=== PATIENT | male | born 1965 | race Caucasian/White ===

== ENCOUNTER 2019-10-08 06:23 | Emergency (ER) | payer BC, OTHER ==
[2019-10-08] MEDS ORDERED: Cocaine 4% TOPICAL* 4 ML/BOTTLE TOPICAL ONE (06:27)
--- NOTE | 2019-10-08 06:37 | ED ---
Throat Pain/Nasal Congestion - HPI Summary HPI Summary: Patient is a 54 y/o M presenting to the ED via EMS for a chief complaint of epistaxis from both nares. Per EMS, patient was found to have 300-400 cc of bright red blood from the nose. Patient notes the bleeding began around 04:30 on 10/08/19. He recently had a nasal surgery performed [address] Nico Villagran at [facility]. He denies fever, headache, or cough. PMHx is significant for DM and blood clots. PSHx is significant for kidney transplant in 2007 performed due to IgA nephropathy. Patient takes Warfarin. - History of Current Complaint Time Seen by Provider: 10/08/19 06:25 Hx Obtained From: Patient Onset/Duration: Sudden Onset, Still Present Severity: Moderate Associated Signs And Symptoms: Positive: Negative Cough: None - Allergies/Home Medications Allergies/Adverse Reactions: Allergies Allergy/AdvReac Type Severity Reaction Status Date / Time No Known Allergies Allergy Verified 02/09/19 10:44 Home Medications: Home Medications Epleronone (NF) [Inspra (NF)] 50 mg PO DAILY 10/08/19 [History Confirmed ] Insulin Glargine,Hum.rec.anlog [Lantus Solostar 5x3 ML PENS] 20 units SUBCUT DAILY 10/08/19 [History Confirmed 10/08/19] PMH/Surg Hx/FS Hx/Imm Hx Previously Healthy: Yes Endocrine/Hematology History: Reports: Hx Diabetes - due to prednisone Cardiovascular History: Reports: Hx Angina, Hx Hypercholesterolemia, Hx Hypertension History: Reports: Other Problems/Disorders - kidney transplant 2007 Musculoskeletal History: Denies: Hx Rheumatoid Arthritis, Hx Osteoporosis Sensory History: Denies: Hx Legally Blind, Hx Deafness Opthamlomology History: Denies: Hx Legally Blind EENT History: Denies: Hx Deafness - Surgical History Surgical History: Yes Surgery Procedure, Year, and Place: kidney transplant 2007 Infectious Disease History: No - Family History Known Family History: Negative: Diabetes - Social History Occupation: Employed Full-time Lives: Alone Alcohol Use: Occasionally Hx Substance Use: No Substance Use Type: Reports: None Hx Tobacco Use: No Smoking Status (MU): Never Smoked Tobacco Review of Systems Negative: Fever Positive: Epistaxis - Both nares Negative: Cough Negative: Headache All Other Systems Reviewed And Are Negative: Yes Physical Exam - Summary Physical Exam Summary: Appearance: Well-appearing, Well-nourished, lying in bed comfortable. Active bleeding out of both nares, difficult to laterate actual site of bleeding. Skin: Warm, dry, no obvious rash Eyes: sclera anicteric, no conjunctival pallor ENT: mucous membranes moist Neck: deferred Respiratory: No signs of respiratory distress Cardiovascular: Appears well perfused, pulses are nml Abdomen: deferred Musculoskeletal: Moving all 4 extremities without obvious discomfort Neurological: Awake and alert, mentation is normal, speech is fluent and appropriate Psychiatric: affect is normal, does not appear anxious or depressed Triage Information Reviewed: Yes Vital Signs Reviewed: Yes Procedures - Sedation Patient Received Moderate/Deep Sedation with Procedure: No Diagnostics - Laboratory Result Diagrams: 10/08/19 07:28 10/08/19 07:28 Lab Statement: Any lab studies that have been ordered have been reviewed, and results considered in the medical decision making process. Re-Evaluation - Re-Evaluation First Eval Re-Evaluation Time: 07:20 Change: Improved Comment: Patient states he thinks the bleeding has stopped after I placed the 7.5cm bilateral Rhino rockets. Discussed Kiarra Quiroga MANAGER INSURANCE's (patient's ENT MANAGER INSURANCE at [facility]) consult with patient. Patient agrees to be transferred to [facility] ED (where his ENT, Dr. Villagran, is in the OR today) if necessary since we do not have ENT search engine optimization manager today. Second Eval Re-Evaluation Time: 08:06 Comment: Patients is at bedside, and they report they will be able to follow-up with Dr. Villagran tomorrow. I will give the patient water to swish and swallow and then I will check his throat to confirm that the bleeding has stopped. If so, I will discharge the patient to be driven home by his for follow-up with his ENT tomorrow. Third Eval Re-Evaluation Time: 09:33 Comment: Discussed plan with patient. Patient will be discharged to follow-up with Dr. Villagran tomorrow. Strict precautions given about increased risk of syncope. Patient agrees and understands with this plan. EENT Course/Dx - Course Course Of Treatment: Patient is a 54 y/o M presenting to the ED via EMS for a chief complaint of epistaxis from both nares. Per EMS, patient was found to have 300-400 cc of bright red blood from the nose. Patient notes the bleeding began around 04:30 on 10/08/19. He recently had a nasal surgery performed [address] Nico Villagran at [facility]. He denies fever, headache, or cough. PMHx is significant for DM and blood clots. PSHx is significant for kidney transplant in 2007 performed due to IgA nephropathy. Patient takes Warfarin. On exam, active bleeding out of both nares, difficult to laterate actual site of bleeding. In the ED course, patient was given cocaine 1ml TOPICAL and lidocaine 15 ml PO. Patient is a sign-out at 07:00 on 10/08/[address] Colten Evangelista MD to Dr. Julián Ybarra MD at shift change, pending further workup and disposition. - Diagnoses Provider Diagnoses: Epistaxis Discharge ED - Sign-Out/Discharge Documenting (check all that apply): Sign-Out Patient Signing out patient TO: Julián Ybarra - Patient is a sign-out at 07:00 on 03/[address] Colten Evangelista MD to Dr. Julián Ybarra MD at shift change, pending further workup and disposition. - Discharge Plan Condition: Stable Disposition: HOME Prescriptions: Amoxicillin/Clavulanate TAB* [Augmentin TAB 875*] 875 mg PO BID #14 tab Patient Education Materials: Amoxicillin/Clavulanate Potassium (By mouth), Nosebleed (ED) Referrals: Karan Gonzales MD [Primary Care Provider] - 3 Days Additional Instructions: Please follow up with Dr. Villagran tomorrow at 10:00AM. I have given you Augmentin and am keeping the Rhino rockets in place. Please do not drive as you have an increased risk of syncope. Please go to the [facility] ED if you have bleeding again or any other concerning symptoms. Call Dr. Villagran's hotline if you end up in the ED today and he will see you in the [facility] ED. It was a pleasure taking care of you today. - Billing Disposition and Condition Condition: STABLE Disposition: Home - Attestation Statements Document Initiated by Scribe: Yes Documenting Scribe: Riya Maravilla Provider For Whom Scribe is Documenting (Include Credential): Colten Evangelista MD Scribe Attestation: I, Riya Maravilla, scribed for Colten Evangelista MD on 10/11/19 at 1914. Scribe Documentation Reviewed: Yes Provider Attestation: The documentation as recorded by the macibRiya guevara accurately reflects the service I personally performed and the decisions made by me, Colten Evangelista MD Status of Scrrosaline Document: Viewed
[2019-10-08] MEDS ORDERED: Lidocaine 2% VISCOUS* 15 ML UDC PO ONE (07:01)
--- NOTE | 2019-10-08 07:07 | ED ---
Progress - Progress Note Progress Note: Patient is a 54 y/o M with recent septum surgery a week ago presenting to the ED via EMS for a chief complaint of epistaxis from both nares. Patient is a sign -out at 07:00 on 10/08/[address] Colten Evangelista MD to Dr. Julián Ybarra MD at shift change, pending further workup and disposition. At 0700 I re-evaluated the patient. Patient reports feeling dizziness initially , but no longer. He reports waiting one week after his surgery to restart the Coumadin. I replaced the blood-soaked bilateral Rhino rocket 5.5cm anterior packings with 7.5cm Rhino rockets soaked with viscous lidocaine packings as the patient was still bleeding with the 5.5.cm packings. Patient tolerated well. Re-Evaluation - Re-Evaluation First Eval Re-Evaluation Time: 07:20 Change: Improved Comment: Patient states he thinks the bleeding has stopped after I placed the 7.5cm bilateral Rhino rockets. Discussed Kiarra Quiroga SUPPLY CHAIN SYSTEMS MANAGER's (patient's ENT SUPPLY CHAIN SYSTEMS MANAGER at [facility]) consult with patient. Patient agrees to be transferred to [place] ED (where his ENT, Dr. Villagran, is in the OR today) if necessary since we do not have ENT train control technician today. Second Eval Re-Evaluation Time: 08:06 Comment: Patients is at bedside, and they report they will be able to follow-up with Dr. Villagran tomorrow. I will give the patient water to swish and swallow and then I will check his throat to confirm that the bleeding has stopped. If so, I will discharge the patient to be driven home by his for follow-up with his ENT tomorrow. Third Eval Re-Evaluation Time: 09:33 Comment: Discussed plan with patient. Patient will be discharged to follow-up with Dr. Villagran tomorrow. Strict precautions given about increased risk of syncope. Patient agrees and understands with this plan. Course/Dx - Course Course Of Treatment: Patient is a 54 y/o M with recent nasal surgery presenting to the ED via EMS for a chief complaint of epistaxis from both nares. Patient is a sign-out at 07:00 on 10/08/[address] Colten Evangelista MD to Dr. Julián Ybarra MD at shift change, pending further workup and disposition. At 0700, I replaced the blood-soaked bilateral Rhino rocket 5.5cm anterior packings with 7.5cm Rhino rockets soaked with viscous lidocaine packings as the patient was still bleeding with the 5.5.cm packings. Patient tolerated well. At 0714, discussed patient case with Kiarra Quiroga NP, the patient's ENT SUPPLY CHAIN SYSTEMS MANAGER at [facility], who stated that Dr. Villagran, the patient's ENT, is available at [facility] today, but does not have privileges to come and see the patient here. At 0726, discussed patient case with [place]. Abdi, [place] at [facility] who stated that if the patient is not actively bleeding, he would not do anything right now. He states that the patient can be discharged home with bilateral Rhino rockets in place. My concern with discharging the patient with bilateral anterior and posterior rockets is that the increase in vagal tone with that much pressure on the septum could cause syncope. I do not feel the patient is stable for discharged to drive himself. Additionally, leaving the rockets in for more than 24-36 hours increases the risk of toxic shock syndrome and septum necrosis. I will discuss Dr. Stock consult with the patient. I think if the patient can arrange a ride and have somebody take him to see Dr. Villagran (his own ENT) today, I would feel comfortable discharging the patient. Will discuss with patient. At 0802 Patients is at bedside, and they report they will be able to follow-up with Dr. Villagran tomorrow. I will give the patient water to swish and swallow and then I will check his throat to confirm that the bleeding has stopped. If so, I will discharge the patient to be driven home by his for follow-up with his ENT tomorrow. I gave the patient Augmentin. Blood work revealed RBC 3.59, Hgb 11.2, Hct 32, MPV 7.2, INR 2.87, chloride 112, BUN 30, creatinine 1.70, glucose 251, calcium 7.8. At [address] Villagran, who said he can see the patient tomorrow at 1000. He agrees with bilateral rockets, Augmentin, and follow-up tomorrow. Discussed plan with patient. Patient will be discharged to follow-up with Dr. Villagran tomorrow. Strict precautions given about increased risk of syncope. Patient agrees and understands with this plan. - Diagnoses Provider Diagnoses: Epistaxis - Provider Notifications Discussed Care Of Patient With: Kiarra Quiroga Time Discussed With Above Provider: 07:14 Instructed by Provider To: Other - Discussed patient case with Kiarra Qiuroga NP, the patient's ENT SUPPLY CHAIN SYSTEMS MANAGER at [facility], who stated that Dr. Villagran, the patient's ENT, is available at [place] today, but does not have privileges to come and see the patient here. At 07, discussed patient case with Dr. Abdi, ENT at [facility], who stated that if the patient is not actively bleeding, he would not do anything right now. He states that the patient can be discharged home with bilateral Rhino rockets in place. At [address] Villagran , who said he can see the patient tomorrow at 1000. He agrees with bilateral rockets, Augmentin, and follow-up tomorrow. Discharge ED - Sign-Out/Discharge Documenting (check all that apply): Patient Departure - Discharge, Receiving Sign-Out Receiving patient FROM: Colten Evangelista - Discharge Plan Condition: Stable Disposition: HOME Prescriptions: Amoxicillin/Clavulanate TAB* [Augmentin TAB 875*] 875 mg PO BID #14 tab Patient Education Materials: Amoxicillin/Clavulanate Potassium (By mouth), Nosebleed (ED) Referrals: Karan Gonzales MD [Primary Care Provider] - 3 Days Additional Instructions: Please follow up with Dr. Villagran tomorrow at 10:00AM. I have given you Augmentin and am keeping the Rhino rockets in place. Please do not drive as you have an increased risk of syncope. Please go to the [place] ED if you have bleeding again or any other concerning symptoms. Call Dr. Villagran's hotline if you end up in the ED today and he will see you in the [place] ED. It was a pleasure taking care of you today. - Billing Disposition and Condition Condition: STABLE Disposition: Home - Attestation Statements Document Initiated by Scribe: Yes Documenting Scribe: Norman Chase Provider For Whom Dylon is Documenting (Include Credential): Julián Ybarra MD Scribe Attestation: I, Norman Chase, scribed for Julián Ybarra MD on 10/08/19 at 1900. Scribe Documentation Reviewed: Yes Provider Attestation: The documentation as recorded by the scribe, Norman Chase accurately reflects the service I personally performed and the decisions made by me, Julián Ybarra MD Status of Scribe Document: Viewed Procedures - Procedure Summary Procedure Summary: Rhino rocket placement: I replaced the blood-soaked bilateral Rhino rocket 5.5cm anterior packings with 7.5cm Rhino rockets soaked with viscous lidocaine packings as the patient was still bleeding with the 5.5.cm packings. Consent obtained. Patient tolerated well. - Sedation Patient Received Moderate/Deep Sedation with Procedure: No
--- OUTSIDE RECORDS SUMMARY | 2019-10-08 07:39 | XMS REPORT | Continuity of Care Document ---
:1965 External Reference #:[id number] Author Name Kiarra Quiroga NP (transmitted by agent of provider Meena Esparza) Address [address] [place] [address] Care Team Providers Name Role Phone Karan Gonzales MD - Family Medicine Care Team Information Records Section Supervisor Unavailable Problems Description No Information Available Social History Type Date Description Comments Sex Unknown Smokeless Tobacco Current Smokeless Tobacco User ETOH Use Current Alcohol Use - 1-3 Days A Week. Recreational Drug Use Never Used Drugs Allergies, Adverse Reactions, Alerts Description No Known Drug Allergies Medications Active Medications SIG Qnty Indications Ordering Provider Date Percocet 1-2 by mouth 20tabs Nico Villagran, 09/10/2019 5-325mg Tablets four times a M.D. day as needed for pain Warfarin Sodium 1 po one day Unknown 5mg Tablets 7.5 po the next Alendronate Sodium take 1 tablet Unknown 70mg by mouth weekly Tablets Aspirin 1 by mouth Unknown 81mg Tablets DR every day Eplerenone Unknown 50mg Tablets Vitamin D3 Ultra Unknown Potency [id number] Tablets Glipizide Unknown 10mg Tablets Lantus Solostar Unknown 100Unit/ML Solution Pen-Inject Mycophenolate Mofetil Unknown 250mg Capsules Prednisone 1 by mouth Unknown 5mg Tablets every day Ranitidine HCL 1 by mouth Unknown 150mg every day Tablets Immunizations Description No Information Available Vital Signs Date Vital Result Comment 09/17/2019 3:10pm Weight 176.00 lb Height 67 inches 5'7" BMI (Body Mass Index) 27.6 kg/m2 BP Systolic 139 mmHg BP Diastolic 88 mmHg Heart Rate 81 /min O2 % BldC Oximetry 95 % Body Temperature 98.8 F Pain Level 0 07/23/2019 9:04am Weight 176.00 lb Height 67 inches 5'7" BMI (Body Mass Index) 27.6 kg/m2 BP Systolic 143 mmHg BP Diastolic 91 mmHg Heart Rate 61 /min O2 % BldC Oximetry 99 % Body Temperature 97.8 F Pain Level 8 Results Description No Information Available Procedures Date Code Description Status 09/10/2019 15705 Nasal/Sinus Endoscopy W/Ligation Sphenopalatine Artery Completed 09/10/2019 72307 Septoplasty Completed 09/10/2019 05509 Exc.Turbinate/Partial Or Complete Completed 09/10/2019 43668 Anesthesia, Nose & Accessory Sinus Surgery Not Otherwise Completed Spec 07/23/2019 25012 Nasal/Sinus Endoscopy, Surgical, W/Control Of Epistaxis Completed 07/22/2019 95466 Nasal/Sinus Endoscopy, Surgical, W/Control Of Epistaxis Completed Medical Devices Description No Information Available Encounters Type Date Location Provider Dx Diagnosis Office Visit 07/22/2019 11:00a Main Office Nico Villagran M.D. R04.0 Epistaxis J34.2 Deviated nasal septum K21.9 Gastro-esophageal reflux disease without esophagitis E03.9 Hypothyroidism, unspecified Assessments Date Code Description Provider 09/10/2019 R04.0 Epistaxis Feng Beasley MD 09/10/2019 R04.0 Epistaxis Nico Villagran M.D. 09/10/2019 J34.3 Hypertrophy of nasal turbinates Feng Beasley MD 09/10/2019 J34.3 Hypertrophy of nasal turbinates Nico Villagran M.D. 09/10/2019 J34.2 Deviated nasal septum Feng Beasley MD 09/10/2019 J34.2 Deviated nasal septum Nico Villagran M.D. 07/23/2019 J34.2 Deviated nasal septum Nico Villagran M.D. 07/23/2019 R04.0 Epistaxis Nico Villagran M.D. 07/22/2019 R04.0 Epistaxis Nico Villagran M.D. 07/22/2019 J34.2 Deviated nasal septum Nico Villagran M.D. 07/22/2019 K21.9 Gastro-esophageal reflux disease without Nico Villagran M.D. esophagitis 07/22/2019 E03.9 Hypothyroidism, unspecified Nico Villagran M.D. Plan of Treatment No Information Available Functional Status Description No Information Available Mental Status Description No Information Available Referrals Refer to Dr Reason for Referral Status Appt Date Nico Villagran M.D. AUTH FOR SURGERY Created [address] [place] [id number] [phone]
[2019-10-08 07:48] LABS: ABS Eosinophils 0.1 10^3/ul (0-0.6); ABS Lymphocytes 2.1 10^3/ul (1.0-4.8); ABS Monocytes 0.6 10^3/ul (0-0.8); ABS Neutrophils 5.5 10^3/ul (1.5-7.7); Eosinophil % 1.5 %; Hematocrit 32 % (42-52); Hemoglobin 11.2 g/dL (14.0-18.0); Lymphocyte % 25.3 %; Mean Corpuscular HGB Conc 35 g/dL (31-36); Mean Corpuscular Hemoglobin 31 pg (27-31); Mean Corpuscular Volume 89 fL (80-94); Mean Platelet Volume 7.2 fL (7.4-10.4); Platelet Count 270 10^3/uL (150-450); Red Blood Count 3.59 10^6 /uL (4.18-5.48); Red Cell Distribution Width 13 % (10-15); White Blood Count 8.4 10^3/uL (3.5-10.8)
[2019-10-08 07:53] LABS: INR 2.87 (0.82-1.09)
[2019-10-08 08:04] LABS: BUN/Creatinine Ratio 17.6 (8-20); Calcium 7.8 mg/dL (8.6-10.3); EGFR African American 51.5 (>60); EGFR Non-African American 42.5 (>60); Potassium 3.9 mmol/L (3.5-5.0)
[2019-10-08] MEDS ORDERED: Amoxicillin/Clavulanate TAB* 875 MG PO ONE (08:14)
[2019-10-08 10:52] VITALS: BP 125/71
== END 2019-10-08 10:20 | disposition home or self-care (01) ==
LOC: ED 06:23
DX: R04.0 Epistaxis (principal); D68.9 Coagulation defect, unspecified; E11.9 Type 2 diabetes mellitus without complications; E78.00 Pure hypercholesterolemia, unspecified; I10 Essential (primary) hypertension; Z94.0 Kidney transplant status; Z79.01 Long term (current) use of anticoagulants
CPT/HCPCS: 30901; 30905; 36415; 80048; 85025; 85610; 99282; A9270-GY; C9046